=== PATIENT | female | born 1990 | race Caucasian/White ===

== ENCOUNTER 2023-03-13 19:19 | Emergency (ER) | payer SELFPAY ==
[2023-03-13] MEDS ORDERED: Amoxicillin/Clavulanate K 875-125 MG Tab PO ONE (20:04)
[2023-03-13] MEDS ORDERED: Lidocaine 1% with EPINEPHrine 1:100,000 20 ML MDV INJECT ONE (20:05)
== END 2023-03-13 21:19 | disposition home or self-care (01) ==
LOC: DL.ED 19:19
DX: S01.85XA Open bite of other part of head, initial encounter (principal); W54.0XXA Bitten by dog, initial encounter
CPT/HCPCS: 12013; 99282; 99283; A9270-GY; J3490